=== PATIENT | male | born 1985 | race Caucasian/White ===

== ENCOUNTER 2021-02-25 22:11 | Emergency (ER) | payer SELFPAY ==
[2021-02-25] MEDS ORDERED: Acetaminophen 500 MG TAB ONE (22:33)
[2021-02-26] MEDS ORDERED: Acetaminophen 500 MG TAB ONE (05:59)
[2021-02-27 01:17] LABS: SARS-CoV-2 PCR by NAA DETECTED (NotDetected)
== END 2021-02-26 09:00 | disposition home or self-care (01) ==
LOC: NAV ERS 22:11
DX: U07.1 COVID-19 (principal); I10 Essential (primary) hypertension; R51.9 Headache, unspecified; F15.10 Other stimulant abuse, uncomplicated; F17.210 Nicotine dependence, cigarettes, uncomplicated
CPT/HCPCS: 70450; U0003; U0005